=== PATIENT | female | born 1990 | race Caucasian/White ===

== ENCOUNTER 2017-09-04 13:51 | Emergency (ER) | payer OTHER, MEDICAID ==
[~2017-09-04] VITALS: Ht 167.6 cm; Wt 63.5 kg
[~2017-09-04 13:51] MED LIST: ACETAMINOPHEN-1 EAC1 PO; CIPROFLOXACIN500 M3 PO; NOHOMEMEDICATIONS; TRAMADOL 50 MG50 MG PO; ZOFRAN4 MG PO
[2017-09-04] MEDS ORDERED: IBUPROFEN 800800 M1 PO (14:01)
[2017-09-04] MEDS ORDERED: AMOXICILLIN 50500 MG PO (14:14)
[2017-09-04] MEDS ORDERED: NORCO 5-325 TA1 EACH PO (14:14)
[2017-09-04 14:21] VITALS: BP 130/70
== END 2017-09-04 14:21 | disposition home or self-care (01) ==
LOC: M.ERS 13:51
DX: K02.9 Dental caries, unspecified (principal)

== ENCOUNTER 2021-02-26 17:47 | Emergency (ER) | payer OTHER, MEDICAID ==
[~2021-02-26] VITALS: Ht 165.1 cm; Wt 56.7 kg
[~2021-02-26 17:47] MED LIST changes: +AMOXICILLIN 50500 MG PO; +IBUPROFEN 800800 M1 PO; +NORCO 5-325 TA1 EACH PO
[2021-02-26 18:11] LABS: URINE BLOOD 3+ (Negative); URINE CLARITY SL CLOUDY; URINE COLOR RED; URINE GLUCOSE-RANDOM NEGATIVE (Negative); URINE KETONES NEGATIVE (Negative); URINE LEUKOCYTES 2+ (Negative); URINE NITRITE POSITIVE (Negative); URINE PROTEIN 2+ (Negative); URINE SPECIFIC GRAVITY 1.015 (1.005-1.030); URINE UROBILINOGEN 0.2 E.U./dl (0.2-1.0)
[2021-02-26 18:21] LABS: ICTOTEST (BILI CONFIRMATORY) Negative (Negative); URINE BILIRUBIN 1+ (Negative)
[2021-02-26 18:25] LABS: CASTS None Seen /LPF (None Seen); MUCUS None Seen strn/LPF (None Seen); SQUAMOUS 0-3 Few /LPF (0-3); URINE RBC >20 Many /HPF (0-2)
[2021-02-26 18:26] LABS: BACTERIA 1-9 Few /HPF (None Seen)
[2021-02-26 18:27] LABS: CRYSTALS None Seen /LPF (None Seen)
[2021-02-26] MEDS ORDERED: MACROBID 100 M100 M2 PO (18:35)
[2021-02-26 18:43] VITALS: BP 113/77
== END 2021-02-26 18:43 | disposition home or self-care (01) ==
LOC: M.ERS 17:47
PROVIDERS: Physician Assistant
DX: N30.01 Acute cystitis with hematuria (principal)